=== PATIENT | female | born 1960 | race Caucasian/White ===

== ENCOUNTER 2019-06-15 12:20 | Day surgery (SDC) | payer OTHER, BC ==
[2019-06-15] MEDS ORDERED: PROPOFOL 40 ML (15:50)
[2019-06-15] MEDS ORDERED: FENTAnyl 50 MCG/ML VIAL (15:55)
== END 2019-06-15 17:37 | disposition home or self-care (01) ==
LOC: GIL 12:20
DX: Z12.11 Encounter for screening for malignant neoplasm of colon (principal); K64.8 Other hemorrhoids
CPT/HCPCS: 45380; 88305